=== PATIENT | male | born 1950 | race Caucasian/White ===

== ENCOUNTER 2016-12-18 08:05 | Inpatient (IN) | payer MEDICARE, BC ==
--- NOTE | ~2016-12-18 | CO ---
Unit #: [id number] #: [id number] Patient: JOSEFINA BARROW [id number] [address] [address] [id number] I MR#: [id number] NAME: JOSEFINA BARROW ROOM: [facility] Age: 66 Sex: M Admission Date: 12/18/2016 : 1950 Attending Physician: Natasha Perla M.D. Primary Care Physician: Primary Care Physician No CONSULTATION REPORT REASON FOR CONSULTATION Pneumonia. CHIEF COMPLAINT Shortness of breath. HISTORY OF PRESENT ILLNESS This is a 66-year-old male with past medical history of HIV, diabetes, hypothyroidism, presents with the complaint of cough, shortness of breath and was found to have pneumonia. Currently admitted. Infectious Disease consulted us to follow the patient and do a bronchoscopy. I am seeing the patient at bedside complaining of shortness of breath and pain. PAST MEDICAL HISTORY 1. HIV. 2. Diabetes mellitus. 3. CVA. 4. Hypothyroidism. 5. COPD. PAST SURGICAL HISTORY 1. Hip surgery. 2. Hemorrhoidectomy. SOCIAL HISTORY Nonsmoker. According to the patient, DNR code status. FAMILY HISTORY Mother committed suicide. ALLERGIES Sulfa causes rash. REVIEW OF SYSTEMS Positive for pallor, no edema, no cyanosis, no jaundice and the rest is as per the history of present illness PHYSICAL EXAMINATION VITAL SIGNS: Temperature 98, pulse 67, respirations 12, blood pressure 130/70. NEUROLOGIC: Awake, alert, oriented. No neurologic deficits. HEENT: PERRLA. EOMI. NECK: Supple, no JVD. LUNGS: Bilateral air entry, bilateral mild rhonchi. Unit #: [id number] #: [id number] Patient: JOSEFINA BARROW ABDOMEN: Nontender, soft. Positive bowel sounds. EXTREMITIES: No edema. SKIN: No rash. LYMPHATICS: No lymphadenopathy. DIAGNOSTIC STUDIES LABORATORY: Reviewed. IMAGING: Reviewed. ASSESSMENT AND PLAN Acute hypoxic respiratory failure, likely underlying chronic obstructive pulmonary disease with exacerbation. PLAN 1. Continue IV antibiotics. 2. Bronchoscopy tomorrow. 3. Will follow the cultures. 4. Continue oxygen and bronchodilator. 5. GI and DVT prophylaxis. 6. Please see orders for detailed plans. Thank you very much for this consultation. Dictated by... Carlos Alexis TD: 12/20/2016 18:53 JOB #: [id number] CONSULTATION REPORT Page 1 of 1 X Pastor Bhagat MD CONSULTATION REPORT
--- NOTE | ~2016-12-18 | US84 ---
[id number] [facility] [address]. [place], [place] [address] [id number] I MR#: [id number] Acc #: [id number] NAME: JOSEFINA BARROW : 1950 SEX: M STUDY DATE/TIME: 12/18/2016 14:48 UNIT: C3A PCU ROOM: 340 STUDY DESCRIPTION: US LE Veins Complete Heber Stdy Attending Physician: Natasha Perla M.D. Ordering Physician: Natasha Perla M.D. Primary Care Physician: Primary Care Physician No MEDICAL IMAGING REPORT This report is preliminary unless electronic signature is present EXAM Bilateral lower extremity venous Doppler INDICATION Elevated D-dimer, chest pain and shortness of breath for 2 days. TECHNIQUE Melgar-scale, color Doppler and spectral Doppler waveform analysis was performed through both lower extremities. FINDINGS The patient's common femoral, deep femoral, superficial femoral, popliteal, anterior tibial, posterior tibial, peroneal and saphenous veins are all patent and compressible. Patient does have a Baig's cyst on the right measuring up to 4.3 x 1.8 x 1.6 cm. IMPRESSION Study is negative for DVT. Patient is noted to have a Baig's cyst within the right popliteal fossa. Dictated by... Kristel Sarmiento M.D. THIS IS AN ELECTRONICALLY VERIFIED REPORT Kristel Sarmiento M.D. at 12/22/2016 1:01 PM KAREN/marcus TD: 12/20/2016 07:53 JOB #: [id number] MEDICAL IMAGING REPORT Page 1 of 1 COPY
--- NOTE | ~2016-12-18 | EKG ---
PATIENT: JOSEFINA BARROW UNIT #: [id number] Ventricular Rate: 124 BPM Atrial Rate: 124 BPM P-R Interval: 156 ms QRS Duration: 74 ms Q-T Interval: 276 ms QTC Calculation(Bezet): 396 ms P [place]: 23 degrees Calculated R [place]: -18 degrees Calculated T [place]: 32 degrees Diagnosis Line: Sinus tachycardia Diagnosis Line: Possible Left atrial enlargement Diagnosis Line: Borderline ECG Diagnosis Line: No previous ECGs available Diagnosis Line: Confirmed by SALBADOR DE LA PAZ MD ([id number]) on Diagnosis Line: 12/19/2016 4:46:49 PM INTERPRETING MD: RADHA
--- NOTE | ~2016-12-18 | CO ---
Unit #: [id number] #: [id number] Patient: JOSEFINA BARROW [id number] [address] [place], [place] [address] [id number] I MR#: [id number] NAME: JOSEFINA BARROW ROOM: 340 Age: 66 Sex: M Admission Date: 12/18/2016 : 1950 Attending Physician: Natasha Perla M.D. Consultation Date: 12/19/2016 CONSULTATION REPORT REASON FOR CONSULTATION HIV and pneumonia. HISTORY OF PRESENT ILLNESS This is a 66-year-old gentleman with a history of HIV disease for the last 30 years, who has stopped taking his HIV medication 2 to 3 months ago because he is "fed up" with this disease. He was admitted with a 1-week history of shortness of breath, cough, sputum production, and right-sided chest pain on deep inspiration and coughing. Chest CT showed consolidation, multifocal pneumonia, and was started on Zithromax and ceftriaxone. ID was consulted for further evaluation. The patient is clinically stable. He only wants pain medication at this time. He had told me definitely that he does not want any HIV medications to be restarted and he does not want any procedures done on him. He has no documented fever or hypotension and his cultures are pending. PAST MEDICAL HISTORY History of hip fracture. HIV disease for 30 years, off treatment for several months ago because he does not want take any medications at all. He does not remember his last CD4 count, but according to the H and P CD4 count was 500 about 4 to 5 months ago. He also has a history of diabetes, CVA with residual left-sided weakness, and hypothyroidism. PAST SURGICAL HISTORY Left hip surgery and hemorrhoidectomy. CURRENT MEDICATION NovoLog, Flexeril, ketorolac, ceftriaxone, Combivent, Zithromax, Tylenol, morphine, and hydrocodone. ALLERGIES Sulfa. SOCIAL HISTORY Lives with his dog. There is no history of tobacco use. He does use marijuana and alcohol occasionally. He is apparently a DNR. FAMILY HISTORY Noncontributory to infectious illnesses. SYSTEMIC REVIEW Right-sided chest pain on deep inspiration and coughing, cough, sputum production, subjective fever. No recent weight loss, headache, diarrhea, Unit #: [id number] #: [id number] Patient: JOSEFINA BARROW dysuria, frequency, urgency, hematuria. PHYSICAL EXAMINATION GENERAL: Reveals a middle-aged male, who is chronically ill. He is awake and alert. He does not appear to be in any distress. VITAL SIGNS: Temperature 97.6, heart rate 80, respirations 17, blood pressure 100/60. No fever was documented during this admission. HEENT: Shows poor dental hygiene. There is no thrush or lymph nodes. NECK: Supple. There is no edema or JVD. He has multiple tattoos. LUNGS: Scattered rhonchi. HEART: Sounds are muffled. ABDOMEN: Grossly obese, soft, and nontender. There is no organomegaly or ascites. Bowel sounds are normal. NEUROLOGIC: Nonfocal. DIAGNOSTIC STUDIES LABORATORY RESULTS: Blood cultures are negative. Hemoglobin A1c 11. Sodium 132, potassium 4, chloride 98, CO2 of 24, BUN 20, creatinine 1, glucose 294. Liver function tests are normal. White count is 8.4, hematocrit is 33.3, platelets 144, neutrophils 56, lymphocytes 28. Troponin less than 0.03. Lactic acid 1.9. Procalcitonin 0.28. Drug screen in the urine, positive for opiates and marijuana. LDH is 184. Urinalysis consistent with glucosuria. There is no UTI evidence. HIV antibody is positive. IMAGING STUDIES: CT of the chest shows multifocal dense consolidation in the right lung, greater than right middle lobe and right lower lobe. Reticulonodular interstitial type infiltrates also noted in the right lung. There are mild emphysema, hilar adenopathy, benign granulomatous changes, and no pulmonary embolism. IMPRESSION Pneumonia and human immunodeficiency virus patient. It appears to be acute community-acquired pneumonia, but given his human immunodeficiency virus disease and reticulonodular infiltrates, a PCP is also a possibility in addition to opportunistic infections. PLAN Unfortunately, the patient does not want any procedures, so bronchoscopy cannot be done which would yield some diagnostic information. At this point, I will recommend to treat as community-acquired pneumonia and PCP. We will check CD4 count and HIV viral load to see the status of the disease. The patient does not want to resume HIV medications and I will respect his request. Prognosis is guarded and was discussed with the patient. Dictated by... Danielito Bonilla M.D. MANUEL/davin TD: 12/20/2016 00:14 JOB #: [id number] Unit #: [id number] #: [id number] Patient: JOSEFINA BARROW CONSULTATION REPORT Page 1 of 1 X Danielito Bonilla MD CONSULTATION REPORT
--- NOTE | ~2016-12-18 | OR ---
Unit #: [id number] #: [id number] Patient: JOSEFINA BARROW [id number] [address] [address] [id number] I MR#: [id number] NAME: JOSEFINA BARROW ROOM: 340 Date of Procedure: 12/21/2016 Admission Date: 12/18/2016 Surgeon: Pastor Bhagat M.D. : 1950 Attending Physician: Marcin Pennington M.D. Primary Care Physician: Chastity Primary Care Physician PROCEDURE OPERATIVE NOTE PREPROCEDURE DIAGNOSIS Pneumonia. POSTPROCEDURE DIAGNOSIS Pneumonia. PROCEDURE PERFORMED Diagnostic bronchoscopy. INDICATION Pneumonia. DETAILS OF THE PROCEDURE After taking consent from the patient explaining the risks and benefits, the patient was placed in a proper position. Bronchoscope introduced through the oral cavity. Vocal cords appeared to be symmetrically moving toward the midline. Trachea was normal. Farideh was sharp. We examined the right upper, right middle, right lower lobe, left upper lobe, lingula, left lower lobe. No endobronchial lesion was found. There was thick mucoid secretion in both lungs, which was therapeutically suction. We we did a bronchoalveolar lavage in the right middle lobe area with 60 mL saline in and 20 mL back. The patient tolerated the procedure very well. No complication happened. Dictated by... Carlos Alexis TD: 12/21/2016 11:33 JOB #: [id number] PROCEDURE OPERATIVE NOTE Page 1 of 1 X Pastor Bhagat MD X PROCEDURE OPERATIVE NOTE
--- NOTE | ~2016-12-18 | DS ---
Unit #: [id number] #: [id number] Patient: JOSEFINA BARROW [id number] [address] [address] [id number] I MR#: [id number] NAME: JOSEFINA BARROW ROOM: [facility] Age: 66 Sex: M Admission Date: 12/18/2016 : 1950 Discharge Date: 12/22/2016 Attending Physician: Marcin Pennington M.D. DISCHARGE SUMMARY DATE OF DISCHARGE/SIGNING OUT AGAINST MEDICAL ADVICE December 22, 2016 ADMITTING DIAGNOSES 1. Pneumonia. 2. Acute respiratory failure. 3. Human immunodeficiency virus. DISCHARGE DIAGNOSES 1. Pneumonia. 2. Acute respiratory failure. 3. Human immunodeficiency virus. 4. Steroid-induced hyperglycemia. 5. Noncompliance. CONSULTANTS 1. Dr. Bhagat. 2. Dr. Bonilla. HISTORY OF PRESENTING ILLNESS Patient is a 66-year-old man with a past medical history of HIV and noncompliance with medications who presented to the hospital with the chief complaint of cough and shortness of breath. HOSPITAL COURSE In the initial hospital course, he was started on antimicrobials for community-acquired pneumonia. He was seen by Pulmonary and Infectious Disease. Unfortunately, he was not taking his HIV medications. The ID physician and I had prolonged conversations with him requesting him to be compliant with his medications. Unfortunately, he does not want to take his HIV medication. His sugars were running high. We requested him to take his insulins, and he refused to take his insulins. He signed himself out against medical advice today and left the building. He is component to make this decisions. We explained to him at length, and he said he does not want to see anyone, and he left the building this afternoon. Kindly note, we could not give any prescriptions as he left (1) against medical advice. I was notified after he left the building. Dictated by... Unit #: [id number] #: [id number] Patient: JOSEFINA BARROW Marcin Pennington M.D. PS/am TD: 12/22/2016 21:32 JOB #: [id number] DISCHARGE SUMMARY Page 1 of 1 X X DISCHARGE SUMMARY
--- NOTE | ~2016-12-18 | HP ---
Unit #: [id number] #: [id number] Patient: JOSEFINA BARROW [id number] [address] [place], [place] [address] [id number] E MR#: [id number] NAME: JOSEFINA BARROW ROOM: Age: 66 Sex: M Admission Date: 12/18/2016 : 1950 Attending Physician: Chris Ramirez M.D. Primary Care Physician: No Primary Care Physician HISTORY AND PHYSICAL CHIEF COMPLAINT Possible broken rib from coughing. HISTORY OF PRESENT ILLNESS The patient is a 66-year-old male with a past medical history of HIV, diabetes, cerebrovascular accident, hypothyroidism, who presented to the emergency department for evaluation of the above. The patient states that he has had a one week history of increasing shortness of breath and intermittently productive cough. He states that he has had right sided chest wall pain in association with the cough. He describes the pain as "sharp." It has been fairly constant in nature. It is exacerbated by deep breathing. There are no alleviating factors. He denies any fever, he denies any similar chest pain. He states that he has had decreased appetite but no vomiting or diarrhea. No urinary symptoms. Upon arrival in the emergency department, the patient's pulse is 125, blood pressure 145/99, oxygen saturation was 92% on room air. CT of the chest PE protocol showed no PE. However, multifocal dense consolidation was noted. He was given azithromycin and Rocephin in the emergency department. He is being admitted to [facility] for evaluation and further treatment. PAST MEDICAL HISTORY 1. Admission to [facility] in October 2015 for hip fracture. 2. HIV, previously followed at the [facility]. Last seen there approximately four months ago. The patient states that he thinks his last DC4 count was around 500 and viral load was undetectable. That would have been several months ago. He states that he stopped taking all of his antiretroviral medications two months ago because he "wants to ." The patient states that he was diagnosed with HIV in 1985. He was told that he had AIDS in 1987. 3. Diabetes. 4. Cerebrovascular accident with residual left sided weakness. 5. Hypothyroidism. PAST SURGICAL HISTORY 1. Left hip surgery. 2. Hemorrhoidectomy. SOCIAL HISTORY The patient lives with his dog. There is no tobacco use. He reports occasional alcohol and marijuana use. His code status is a DO NOT RESUSCITATE. The patient states that he uses a wheelchair for mobility. Unit #: [id number] #: [id number] Patient: JOSEFINA BARROW FAMILY HISTORY Notable for his mother committing suicide. He is not sure of his dad's medical history. ALLERGIES Sulfa causes a rash. REVIEW OF SYSTEMS A complete review of systems is negative except as indicated in the HPI. The patient states that he has not been taking any of his medications including his antiretroviral medications for the past two months. He does not check his blood sugars. He is not sure if he has had any change in his weight. The patient denies any active suicidal ideations. DIAGNOSTIC STUDIES CARDIOVASCULAR: EKG shows sinus tachycardia with a rate of 124 beats/minute. IMAGING: CT of the chest PE protocol shows no PE. Multifocal dense consolidations are noted as well as trace right pleural effusion. LABORATORY: Troponin is less than 0.05. Complete blood count notable for white blood cell count of 13.2, INR is 1.1, D-dimer 1083. Lactic acid is 1.8. Comprehensive metabolic panel notable for a sodium of 126 that corrects to 131 when glucose of 405 is accounted for. BNP is 72. Right rib detail shows right mid and lower lung interstitial infiltrates but no fracture. PHYSICAL EXAMINATION VITAL SIGNS: Temperature is 98.2, pulse 125, respirations 28, blood pressure 145/99. Oxygen saturation is 92% on room air. GENERAL: The patient is a male who is awake and alert. HEENT: The head is atraumatic. Mucous membranes are moist. NECK: Supple. Trachea is midline. CARDIOVASCULAR: Tachycardic in the 110s. LUNGS: Relatively clear to auscultation bilaterally with no increased work of breathing. ABDOMEN: Soft, nontender with bowel sounds present in all four quadrants. EXTREMITIES: Nontender with no pedal edema. NEUROLOGIC: The patient is awake and alert. He is oriented x3. He follows commands. He does have left sided weakness that is not a new problem. PSYCH: Mood and affect are normal. The patient is cooperative. SKIN: Skin of examined areas is warm and dry. He does have multiple tattoos. MUSCULOSKELETAL: The patient does have right sided chest wall tenderness. ASSESSMENT The patient is a 66-year-old male with: 1. Pneumonia, community-acquired in a patient with HIV: He is allergic to Bactrim. He received Rocephin and azithromycin in the emergency department. 2. Trace right pleural effusion. Unit #: [id number] #: [id number] Patient: JOSEFINA BARROW 3. HIV positive: The patient's CD4 count was 500 with an undetectable viral load per the patient several months ago. 4. Chest wall pain. 5. Sepsis with initial lactic acid of 1.8. 6. Uncontrolled diabetes with glucose of 405 on comprehensive metabolic panel. 7. Hyponatremia that corrects to 131 when glucose is accounted for. 8. History of cerebrovascular accident with residual left sided weakness. 9. Hypothyroidism. PLAN 1. Admit to intermediate level. 2. Normal saline at 100 mL/hour. 3. Healthy heart consistent carb diet. 4. Bedrest. 5. Fall precautions. 6. Supplemental oxygen 2 to 4 L to maintain saturations greater than 92%. 7. Blood cultures x2. 8. Sputum culture and sensitivity. 9. P.r.n. Duo-Nebs. 10. Incentive spirometry. 11. Rocephin and azithromycin for community-acquired pneumonia pending further workup. 12. Check procalcitonin level. 13. Check HIV viral load and CD4 count. 14. Consult Dr. Pike regarding HIV and pneumonia. 15. Serial cardiac enzymes. 16. Sepsis protocol with repeat lactic acid. 17. Check TSH. 18. Hemoglobin A1c. 19. Low dose sliding scale insulin with Accu-Cheks. 20. Bilateral lower extremity venous Dopplers for further evaluation of elevated D-dimer. 21. Check urinalysis and urine tox screen. 22. P.r.n. Tylenol. 23. P.r.n. [place]. 24. Repeat labs in the morning. 25. Additional workup and consultants based on above. Dictated by Natasha Perla M.D. Kerry TD: 12/18/2016 12:40 JOB #: [id number] Unit #: [id number] #: [id number] Patient: JOSEFINA BARROW HISTORY AND PHYSICAL Page 1 of 1 X Natasha Perla MD HISTORY AND PHYSICAL
--- NOTE | ~2016-12-18 | CR211 ---
[facility] A Service of [facility] RADIOLOGY TEXT RESULTS PATIENT: JOSEFINA BARROW LOCATION: [facility] : [birth year] UNIT #: [id number] AGE: [address]: Natasha Perla MD SEX: M ORDER DR: [id number] [facility] [address] [place], [place] [address] [id number] E MR#: [id number] Acc #: [id number] NAME: JOSEFINA BARROW : 1950 SEX: M STUDY DATE/TIME: 12/18/2016 7:13 UNIT: [facility] ROOM: STUDY DESCRIPTION: CR Ribs Uni 2 View W PA Ch Rt Attending Physician: Chris Ramirez M.D. Ordering Physician: Chris [id number] Ashley Ramirez Primary Care Physician: Primary Care Physician No MEDICAL IMAGING REPORT This report is preliminary unless electronic signature is present EXAM Portable chest with rib series dated 12/18/2016 COMPARISON None. HISTORY Coughing episode with right sided mid rib pain. FINDINGS No pneumothorax. No identifiable fracture. There is coarse right lower lung infiltrate and mild left interstitial prominence. IMPRESSION Overall mild interstitial prominence and submaximal inspiration but right mid and lower lung fairly coarse interstitial infiltrate is seen. There is no definite effusion or pneumothorax and there is no fracture. Dictated by... Abhishek Scales M.D. THIS IS AN ELECTRONICALLY VERIFIED REPORT Abhishek Scales M.D. at 12/20/2016 11:19 AM DOROTHEA/luis TD: 12/18/2016 09:58 JOB #: [id number] MEDICAL IMAGING REPORT Page 1 of 1 COPY
--- NOTE | ~2016-12-18 | CT16 ---
[facility] A Service of [facility] RADIOLOGY TEXT RESULTS PATIENT: JOSEFINA BARROW LOCATION: [facility] 340-01 : [birth year] UNIT #: [id number] AGE: [address]: Marcin Pennington MD SEX: M ORDER DR: [id number] [place] [id number] [facility]. [place], [place] [address] [id number] E MR#: [id number] Acc #: [id number] NAME: JOSEFINA BARROW : 1950 SEX: M STUDY DATE/TIME: 12/18/2016 9:31 UNIT: [facility] ROOM: STUDY DESCRIPTION: CT Angio Chest for PE Attending Physician: Chris Ramirez M.D. Ordering Physician: Chris Ramirez M.D. Primary Care Physician: No Primary Care Physician MEDICAL IMAGING REPORT This report is preliminary unless electronic signature is present EXAM CTA chest with contrast, pulmonary embolism protocol. Date: 12/18/2016 HISTORY A 66-year-old male, shortness breath and cough for 1 week. Diabetes. Previous stroke. TECHNIQUE This CT exam was performed with one or more of the following radiation dose reduction techniques: automatic exposure control, adjustment of mA and/or kV according to patient size, and iterative reconstruction. COMPARISON PA chest with right rib detail series 12/18/2016 at 07:13 PROCEDURE 2 mm axial images through the chest after IV contrast administration. 3-D coronal MIP reformatted images were obtained. FINDINGS The quality of the study is good. There is no pulmonary embolism. There is no thoracic aortic aneurysm or aortic dissection. Dense airspace disease is demonstrated within the right middle lobe, superior right lower lobe, and to a lesser degree, posterior right upper lobe with intervening reticular nodular interstitial type infiltrates. Left lung appears relatively clear. Mild emphysematous change changes are present. Trace right pleural effusion. No pericardial effusion. Mildly prominent right hilar lymph nodes measuring up to 1.5 cm, favored to [facility] A Service of [facility] RADIOLOGY TEXT RESULTS PATIENT: JOSEFINA BARROW LOCATION: [facility] 340-01 : [birth year] UNIT #: [id number] AGE: [address]: Marcin Pennington MD SEX: M ORDER DR: represent benign reactive findings. Benign calcified granulomatous changes are present in the mediastinum and right hilum. Advanced generate changes are present in the sternoclavicular joint. No acute osseous abnormalities are identified. Small gallstones are present without pericholecystic inflammation or biliary ductal dilation. IMPRESSION 1. Multifocal dense consolidations are present within the right lung, greatest in the right middle lobe and right lower lobe. Correlate clinically for pneumonia. Reticular nodular interstitial type infiltrates are also scanned in the right lung. 2. Mild emphysema. 3. Mildly prominent right hilar lymph node thought to be benign and reactive. Benign granulomatous changes are seen elsewhere within the mediastinum and right hilum. 4. Trace right pleural effusion. 5. No pulmonary embolism. 6. Uncomplicated cholelithiasis. Dictated by... aKy Villalobos M.D. THIS IS AN ELECTRONICALLY VERIFIED REPORT Kay Villalobos M.D. at 12/21/2016 8:37 AM VICKEY/zainab TD: 12/18/2016 12:19 JOB #: [id number] MEDICAL IMAGING REPORT Page 1 of 1 COPY
[2016-12-18 06:57] LABS: POC - CKMB 1.9 ng/mL (0.0-7.9); POC - TROPONIN <0.05 ng/mL (<=0.05)
[2016-12-18 07:32] LABS: BASOPHIL% 0.3 % (0-2.5); EOSINOPHIL% 0.1 % (0.0-7.0); HEMATOCRIT 43.7 % (38.0-50.0); LYMPHOCYTE# 1.7 X10e3 (1.0-3.5); LYMPHOCYTE% 12.9 % (17.0-45.0); MEAN CELL VOLUME 88.2 FL (83-96); MEAN CORPUSCULAR HEMOGLOBIN 28.2 PG (28-34); MONOCYTE# 1.6 X10e3 (0-1.0); MONOCYTE% 12.3 % (3.0-12.0); NEUTROPHIL# 9.9 X10e3 (1.5-7.1); NEUTROPHIL% 74.4 % (40-75); PLATELET COUNT 197 X10e3 (140-420); RED BLOOD COUNT 4.95 X10e (3.90-5.60); RED CELL DISTRIBUTION WIDTH 14.8 % (11.0-15.5); WHITE BLOOD COUNT 13.2 X10e3 (4.0-10.5)
[2016-12-18 07:40] LABS: INR 1.1; PROTHROMBIN TIME (PATIENT) 11.8 SECONDS (9.6-11.5)
[2016-12-18 07:41] LABS: DIFF IND NO
[2016-12-18 08:15] LABS: ALBUMIN SERUM 3.9 g/dL (3.5-5.0); BILIRUBIN, DIRECT 0.1 mg/dL (0.0-0.2); BILIRUBIN,INDIRECT 0.9 mg/dL (0.0-0.9); CALCIUM SERUM 9.8 mg/dL (8.4-10.2); GLOM FILT RATE Estimated 78.1 mL/min (>60); POTASSIUM 4.5 mmol/L (3.5-5.1); PROTEIN TOTAL SERUM 8.2 g/dL (6.0-8.3)
[2016-12-18] MEDS ORDERED: NO MEDICATIONS (11:07)
[2016-12-18 13:27] LABS: URINE SOURCE CLEAN CATCH
[2016-12-18 13:38] LABS: HEMOGLOBIN 12.7 gm/dL (13.0-16.0)
[2016-12-18 14:02] LABS: URINE APPEARANCE CLEAR; URINE BILIRUBIN NEG (NEG); URINE BLOOD NEG (NEG); URINE COLOR YELLOW; URINE GLUCOSE >1000 MG/DL (NEG); URINE KETONE 1+ (NEG); URINE LEUKOCYTE ESTERASE NEG (NEG); URINE NITRATE NEG (NEG); URINE PROTEIN 1+ (NEG); URINE UROBILINOGEN 0.2 MG/DL (NEG)
[2016-12-18 14:06] LABS: CULTURE INDICATED? NO; URBCS1 AUWI 0-2 /[HPF] (0-2); URINE BACTERIA AUWI NEG (NEGATIVE); URINE SQUAMOUS EPITHELIAL CELL NONE SEEN /[HPF]; UWBCS1 AUWI 0-2 (0-5)
[2016-12-18 14:07] LABS: AMPHETAMINE NEG (NEG); BARBITURATES NEG (NEG); BENZODIAZEPINES NEG (NEG); COCAINE NEG (NEG); MARIJUANA POS (NEG); OPIATES POS (NEG); TRICYCLIC ANTIDEPRESSANTS NEG (NEG); U METHADONE NEG (NEG)
[2016-12-18 14:07] LABS: CK TOTAL 47 IU/L (36-174); LACTIC ACID DEHYDROGENASE 184 U/L (91-180)
[2016-12-18 20:58] LABS: CK TOTAL 50 IU/L (36-174)
[2016-12-19 07:04] LABS: BASOPHIL% 0.5 % (0-2.5); EOSINOPHIL# 0.1 X10e3 (0-0.7); EOSINOPHIL% 0.7 % (0.0-7.0); HEMATOCRIT 33.3 % (38.0-50.0); HEMOGLOBIN 10.9 gm/dL (13.0-16.0); LYMPHOCYTE# 2.4 X10e3 (1.0-3.5); LYMPHOCYTE% 28.9 % (17.0-45.0); MEAN CELL VOLUME 87.8 FL (83-96); MEAN CORPUSCULAR HEMOGLOBIN 28.8 PG (28-34); MEAN CORPUSCULAR HGB CONC 32.7 g/dL (30-36); MEAN PLATELET VOLUME 8.6 FL (6.5-11.5); MONOCYTE# 1.1 X10e3 (0-1.0); MONOCYTE% 13.4 % (3.0-12.0); NEUTROPHIL# 4.7 X10e3 (1.5-7.1); NEUTROPHIL% 56.5 % (40-75); PLATELET COUNT 144 X10e3 (140-420); RED BLOOD COUNT 3.79 X10e (3.90-5.60); RED CELL DISTRIBUTION WIDTH 14.4 % (11.0-15.5); WHITE BLOOD COUNT 8.4 X10e3 (4.0-10.5)
[2016-12-19 07:05] LABS: DIFF IND NO
[2016-12-19 07:43] LABS: ALBUMIN SERUM 2.9 g/dL (3.5-5.0); BILIRUBIN,TOTAL 0.5 mg/dL (0.2-2.0); CALCIUM SERUM 8.7 mg/dL (8.4-10.2); GLOM FILT RATE Estimated 78.1 mL/min (>60); PROTEIN TOTAL SERUM 6.7 g/dL (6.0-8.3)
[2016-12-20 08:02] LABS: BASOPHIL% 0.3 % (0-2.5); EOSINOPHIL# 0.1 X10e3 (0-0.7); EOSINOPHIL% 1.1 % (0.0-7.0); HEMATOCRIT 25.7 % (38.0-50.0); LYMPHOCYTE# 1.2 X10e3 (1.0-3.5); LYMPHOCYTE% 23.5 % (17.0-45.0); MEAN CELL VOLUME 88.4 FL (83-96); MEAN CORPUSCULAR HGB CONC 32.8 g/dL (30-36); MEAN PLATELET VOLUME 8.7 FL (6.5-11.5); MONOCYTE# 0.6 X10e3 (0-1.0); MONOCYTE% 11.7 % (3.0-12.0); NEUTROPHIL# 3.4 X10e3 (1.5-7.1); NEUTROPHIL% 63.4 % (40-75); PLATELET COUNT 127 X10e3 (140-420); RED BLOOD COUNT 2.91 X10e (3.90-5.60); RED CELL DISTRIBUTION WIDTH 14.7 % (11.0-15.5); WHITE BLOOD COUNT 5.3 X10e3 (4.0-10.5)
[2016-12-20 08:03] LABS: DIFF IND NO; HEMOGLOBIN 8.5 gm/dL (13.0-16.0)
[2016-12-20 08:23] LABS: BUN/CREATININE RATIO 28.33; CALCIUM SERUM 6.8 mg/dL (8.4-10.2); CREATININE SERUM 0.6 mg/dL (0.6-1.4); GLOM FILT RATE Estimated 104.8 mL/min (>60); POTASSIUM 3.4 mmol/L (3.5-5.1)
[2016-12-21 05:51] LABS: HEMATOCRIT 32.1 % (38.0-50.0); MEAN CELL VOLUME 87.7 FL (83-96); MEAN CORPUSCULAR HEMOGLOBIN 28.6 PG (28-34); MEAN CORPUSCULAR HGB CONC 32.6 g/dL (30-36); MEAN PLATELET VOLUME 8.5 FL (6.5-11.5); RED BLOOD COUNT 3.66 X10e (3.90-5.60); RED CELL DISTRIBUTION WIDTH 14.8 % (11.0-15.5); WHITE BLOOD COUNT 5.9 X10e3 (4.0-10.5)
[2016-12-21 05:59] LABS: HEMOGLOBIN 10.5 gm/dL (13.0-16.0)
[2016-12-21 06:49] LABS: BUN/CREATININE RATIO 22.5; CALCIUM SERUM 8.2 mg/dL (8.4-10.2); CREATININE SERUM 0.8 mg/dL (0.6-1.4); GLOM FILT RATE Estimated 93.1 mL/min (>60); POTASSIUM 4.6 mmol/L (3.5-5.1)
[2016-12-21 14:53] LABS: BODY FLUID APPEARANCE CLOUDY; BODY FLUID SOURCE BRONCHIAL LAVAGE
[2016-12-21 17:24] LABS: BF TOTAL NUCLEATED CELL COUNT 255 CMM (0-100); BODY FLUID RBC <10000 CMM
[2016-12-22 09:20] LABS: HEMATOCRIT 34.2 % (38.0-50.0); HEMOGLOBIN 10.9 gm/dL (13.0-16.0); MEAN CELL VOLUME 89.2 FL (83-96); MEAN CORPUSCULAR HEMOGLOBIN 28.3 PG (28-34); MEAN CORPUSCULAR HGB CONC 31.8 g/dL (30-36); MEAN PLATELET VOLUME 9.1 FL (6.5-11.5); RED BLOOD COUNT 3.83 X10e (3.90-5.60); RED CELL DISTRIBUTION WIDTH 14.9 % (11.0-15.5)
[2016-12-22 09:56] LABS: CALCIUM SERUM 8.6 mg/dL (8.4-10.2); GLOM FILT RATE Estimated 78.1 mL/min (>60); POTASSIUM 4.5 mmol/L (3.5-5.1)
[2016-12-22 16:17] LABS: HIV1 LOG COPIES/ML 4.45 (<1.30)
[2016-12-22 20:54] LABS: CD4 % (PNL) 16 % (30-61)
[2016-12-23 00:47] LABS: NIL 0.09 IU/mL (()); QUANTIFERON NEGATIVE (Negative); TB AG-NIL 0.09 IU/mL (())
[2016-12-24 09:01] LABS: HISTO AG URINE SPECIMEN Urine (())
== END 2016-12-22 15:57 | disposition left against medical advice (07) | DRG 166 ==
LOC: CED 08:05 → CEDOF 11:55 → C3A PCU 15:48
PROVIDERS: Emergency Medicine; Family Medicine; Internal Medicine
PROC: 0B9M8ZZ Drainage of Bilateral Lungs, Via Natural or Artificial Opening Endoscopic (ICD-10-PCS; principal; 2016-12-21 10:14)
PROC: 0B9D8ZX Drainage of Right Middle Lung Lobe, Via Natural or Artificial Opening Endoscopic, Diagnostic (ICD-10-PCS; 2016-12-21 10:14)
DX: J96.01 Acute respiratory failure with hypoxia (principal); B20 Human immunodeficiency virus [HIV] disease; J91.8 Pleural effusion in other conditions classified elsewhere; J44.0 Chronic obstructive pulmonary disease with (acute) lower respiratory infection; J44.1 Chronic obstructive pulmonary disease with (acute) exacerbation; I69.354 Hemiplegia and hemiparesis following cerebral infarction affecting left non-dominant side; E87.1 Hypo-osmolality and hyponatremia; R73.9 Hyperglycemia, unspecified; T38.0X5A Adverse effect of glucocorticoids and synthetic analogues, initial encounter; Y92.9 Unspecified place or not applicable; Z91.19 Patient's noncompliance with other medical treatment and regimen; E03.9 Hypothyroidism, unspecified; Z66 Do not resuscitate; E11.65 Type 2 diabetes mellitus with hyperglycemia; Z79.4 Long term (current) use of insulin; Z88.1 Allergy status to other antibiotic agents; Z88.2 Allergy status to sulfonamides
CPT/HCPCS: 36415; 71101; 71275; 80048; 80053; 80076; 80307; 81003; 82308; 82550; 82553; 82947; 83036; 83605; 83615; 83880; 84443; 84484; 85014; 85018; 85025; 85027; 85379; 85610; 86361; 86480; 86701; 86702; 87040; 87070; 87102; 87106; 87116; 87205; 87206; 87252; 87254; 87278; 87385; 87449; 87536; 87806; 87899; 88108; 88305; 88312; 89051; 93005; 93970; 94010; 94640; 94760; 96374; 97163; 99285; G8978-GP; G8979-GP; J0171; J0456; J0696; J1815; J1885; J2270; J2930; Q9967